=== PATIENT | male | born 1965 | race African-American/Black ===

== ENCOUNTER 2021-09-03 08:03 | Emergency (ER) | payer MEDICARE, MEDICAID ==
[~2021-09-03] VITALS: Ht 182.9 cm; Wt 86.4 kg
[~2021-09-03 08:03] MED LIST: INSU100V SQ; QUET100T PO
[2021-09-03 11:46] LABS: GLUCOSE,POINT OF CARE 184 MG/DL (70-110)
[2021-09-03 11:59] VITALS: BP 120/78
== END 2021-09-03 12:48 | disposition home or self-care (01) ==
LOC: EMS 08:13
DX: R45.851 Suicidal ideations (principal); F25.9 Schizoaffective disorder, unspecified; E11.9 Type 2 diabetes mellitus without complications; F17.210 Nicotine dependence, cigarettes, uncomplicated; Z79.899 Other long term (current) drug therapy; Z79.4 Long term (current) use of insulin
CPT/HCPCS: 82962; 99285

== ENCOUNTER 2023-05-17 09:14 | Emergency (ER) | payer MEDICAID, MEDICARE ==
[~2023-05-17] VITALS: Ht 182.9 cm; Wt 90.9 kg
[~2023-05-17 09:14] MED LIST changes: +ASPI-1444 PO; +ATOR20TA65 PO; +DIVA500T53 PO; +GABA-529 PO; -INSU100V SQ; +LISI10TA24 PO; +PRAZ1 PO; -QUET100T PO; +RIVA2.5T3 PO; +TRAZ-283 PO
[2023-05-17 09:17] VITALS: TEMP 98.5
[2023-05-17] MEDS ORDERED: INSLAN SQ ×4 (09:20→16:17)
[2023-05-17 09:52] LABS: BASOPHILS % (AUTO) 0.9 % (0.0-2.0); EOSINOPHILS % (AUTO) 6.3 % (1.0-6.0); HEMATOCRIT 41.4 % (41-53); HEMOGLOBIN 13.8 g/dL (13.5-17.5); LYMPHOCYTES # (AUTO) 1.6 K/uL (1.0-4.8); LYMPHOCYTES % (AUTO) 24.9 % (22.0-44.0); MEAN CORPUSCULAR HEMOGLOBIN 30.6 pg (26.0-34.0); MEAN CORPUSCULAR HGB CONC 33.4 G/dL (31.0-37.0); MEAN CORPUSCULAR VOLUME 92 fL (80-100); MONOCYTES # (AUTO) 0.6 K/uL (0.1-1.0); MONOCYTES % (AUTO) 8.8 % (2.0-9.0); NEUTROPHILS # (AUTO) 3.9 K/uL (1.8-7.7); NEUTROPHILS % (AUTO) 59.1 % (40.0-70.0); PLATELET COUNT (AUTO) 296 K/uL (150-450); RED BLOOD CELL COUNT(AUTO) 4.53 MIL/uL (4.50-5.90); RED CELL DISTRIBUTION WIDTH 13.8 % (11.5-14.5); WHITE BLOOD COUNT (AUTO) 6.6 K/uL (4.5-11.0)
[2023-05-17 10:02] LABS: ALANINE AMINOTRANSFERASE 21 U/L (12-78); ALBUMIN 3.4 g/dL (3.4-5.0); ALKALINE PHOSPHATASE 182 U/L (46-116); ANION GAP 6 mmol/L (8-16); ASPARTATE AMINOTRANSFERASE 14 U/L (15-37); BILIRUBIN,TOTAL 0.2 mg/dL (0.1-1.0); CALCIUM, TOTAL 8.6 mg/dL (8.8-10.5); CARBON DIOXIDE 28 mmol/L (22-29); CHLORIDE 92 mmol/L (98-107); CREATININE 1.24 mg/dL (0.60-1.30); GLOMERULAR FILTR. RATE CALC > 60 mL/min (>60); POTASSIUM 4.8 mmol/L (3.5-5.1); SODIUM SERUM 126 mmol/L (136-145); TOTAL PROTEIN, SERUM 7.7 g/dL (6.4-8.2); UREA NITROGEN, BLOOD 20 mg/dL (7-18)
[2023-05-17 10:14] LABS: GLUCOSE,RANDOM 510 mg/dL (70-110)
[2023-05-17] MEDS ORDERED: SODIUM CHLORIDE 0.9% 1,000 ML IV ONE (10:45)
[2023-05-17] MEDS ORDERED: ONDANSETRON HCL 4 MG/2 ML VIAL IVP ONE (10:45)
[2023-05-17 11:00] LABS: LIPASE 105 U/L (16-77)
[2023-05-17 11:11] LABS: TROPONIN I-HIGH SENSITIVITY 5 ng/L (<76)
[2023-05-17] MEDS ORDERED: INSULIN REGULAR, HUMAN 100 UNITS/ML IVP ONE (12:15)
[2023-05-17] MEDS ORDERED: FAMOTIDINE 20 MG/2 ML VIAL IVP ONE (15:15)
[2023-05-17 15:59] LABS: PH,URINE DRUG SCREEN 5.5 (5.0-8.0)
[2023-05-17 16:00] LABS: APPEARANCE,URINE CLEAR (CLEAR); BILIRUBIN,URINE NEGATIVE (NEGATIVE); COLOR,URINE COLORLESS (YELLOW); GLUCOSE, URINE (UA) >=1000 mg/dL (NEGATIVE); KETONES,URINE NEGATIVE (NEGATIVE); LEUKOCYTE ESTERASE ,URINE NEGATIVE (NEGATIVE); NITRATE,URINE NEGATIVE (NEGATIVE); OCCULT BLOOD,URINE NEGATIVE (NEGATIVE); PH,URINE 5.5 (5.0-8.0); PROTEIN,URINE NEGATIVE (NEGATIVE); SPECIFIC GRAVITIY, URINE 1.017 (1.003-1.030); UROBILINOGEN,URINE <=1.0 mg/dL (<=1.0)
[2023-05-17] MEDS ORDERED: POLY17PO PO (16:12)
[2023-05-17 16:14] LABS: AMPHET/METH SCREEN,URINE POSITIVE (NEGATIVE); BARBITURATE SCREEN, URINE NEGATIVE (NEGATIVE); BENZODIAZEPINES SCREEN,URINE NEGATIVE (NEGATIVE); CANNABINOID SCREEN,URINE NEGATIVE (NEGATIVE); COCAINE SCREEN,URINE NEGATIVE (NEGATIVE); METHADONE SCREEN, URINE NEGATIVE (NEGATIVE); OPIATE SCREEN,URINE NEGATIVE (NEGATIVE); PHENCYCLIDINE SCREEN,URINE NEGATIVE (NEGATIVE)
[2023-05-17 16:17] LABS: ALCOHOL, URINE DRUG SCREEN NEGATIVE (NEGATIVE)
[2023-05-17 16:21] LABS: BACTERIA,URINE None Seen /HPF (None Seen); RBC,URINE None Seen /HPF (0-2); SQUAMOUS EPITHELIAL CELL,UR Rare /LPF (None Seen); WBC,URINE None Seen /HPF (0-5)
[2023-05-17 16:54] VITALS: BP 134/75; PULSE 77; RESP 19
== END 2023-05-17 17:03 | disposition home or self-care (01) ==
LOC: EMS 09:20
DX: K59.00 Constipation, unspecified (principal); R10.84 Generalized abdominal pain; E11.65 Type 2 diabetes mellitus with hyperglycemia; F32.A Depression, unspecified; I10 Essential (primary) hypertension; F17.210 Nicotine dependence, cigarettes, uncomplicated
CPT/HCPCS: 99285; 74176; 96374; 76705; 96375; 96361; 80053; 82962; 83605; 83690; 84484; 85025; 93005; 80307; 81001; 36415; J3490; J1815; J2405; G0480

== ENCOUNTER 2023-06-09 05:38 | Inpatient (IN) | payer MEDICARE ==
[~2023-06-09] VITALS: Ht 185.4 cm; Wt 93.0 kg
[~2023-06-09 05:38] MED LIST changes: -ASPI-1444 PO; -ATOR20TA65 PO; -DIVA500T53 PO; -GABA-529 PO; +INSLAN SQ; -LISI10TA24 PO; +POLY17PO PO; -PRAZ1 PO; -RIVA2.5T3 PO; -TRAZ-283 PO
[2023-06-09] MEDS ORDERED: SODIUM CHLORIDE 0.9% 1,000 ML IV ONE (06:15)
[2023-06-09 06:20] LABS: BASOPHILS % (AUTO) 1.4 % (0.0-2.0); EOSINOPHILS % (AUTO) 3.8 % (1.0-6.0); HEMATOCRIT 38.7 % (41-53); HEMOGLOBIN 12.8 g/dL (13.5-17.5); LYMPHOCYTES # (AUTO) 1.5 K/uL (1.0-4.8); LYMPHOCYTES % (AUTO) 22.9 % (22.0-44.0); MEAN CORPUSCULAR HEMOGLOBIN 30.6 pg (26.0-34.0); MEAN CORPUSCULAR HGB CONC 33.2 G/dL (31.0-37.0); MEAN CORPUSCULAR VOLUME 92 fL (80-100); MONOCYTES # (AUTO) 0.3 K/uL (0.1-1.0); MONOCYTES % (AUTO) 4.9 % (2.0-9.0); NEUTROPHILS # (AUTO) 4.4 K/uL (1.8-7.7); PLATELET COUNT (AUTO) 250 K/uL (150-450); RED BLOOD CELL COUNT(AUTO) 4.21 MIL/uL (4.50-5.90); WHITE BLOOD COUNT (AUTO) 6.5 K/uL (4.5-11.0)
[2023-06-09 06:24] LABS: COVID AG,FIA SOURCE NASAL SWAB
[2023-06-09 06:29] LABS: ALCOHOL, BLOOD (SERUM) < 3 mg/dL (0-10)
[2023-06-09 06:36] LABS: TROPONIN I-HIGH SENSITIVITY 62 ng/L (<76)
[2023-06-09 06:41] LABS: B-TYPE NATRIURETIC PEPTIDE 7 pg/mL (0-100)
[2023-06-09 06:46] LABS: SARS-COV2 (COVID) ANTIGEN,FIA Negative (Negative)
[2023-06-09 06:53] LABS: ALANINE AMINOTRANSFERASE 30 U/L (12-78); ALBUMIN 3.3 g/dL (3.4-5.0); ALKALINE PHOSPHATASE 116 U/L (46-116); ANION GAP 12 mmol/L (8-16); ASPARTATE AMINOTRANSFERASE 18 U/L (15-37); BILIRUBIN,TOTAL 0.2 mg/dL (0.1-1.0); CALCIUM, TOTAL 8.5 mg/dL (8.8-10.5); CARBON DIOXIDE 24 mmol/L (22-29); CHLORIDE 94 mmol/L (98-107); CREATINE KINASE, TOTAL ONLY 88 U/L (39-308); CREATININE 1.31 mg/dL (0.60-1.30); GLOMERULAR FILTR. RATE CALC > 60 mL/min (>60); POTASSIUM 4.2 mmol/L (3.5-5.1); SODIUM SERUM 130 mmol/L (136-145); TOTAL PROTEIN, SERUM 7.4 g/dL (6.4-8.2); UREA NITROGEN, BLOOD 21 mg/dL (7-18)
[2023-06-09 06:56] LABS: GLUCOSE,RANDOM 553 mg/dL (70-110)
[2023-06-09 06:58] LABS: ACETONE,BLOOD NEGATIVE (NEGATIVE)
[2023-06-09] MEDS ORDERED: INSULIN REGULAR, HUMAN 100 UNITS/ML IVP ONE (07:00)
[2023-06-09] MEDS ORDERED: 0.9% SODIUM CHLORIDE 10 ML SYRINGE IVP PRN (07:15)
[2023-06-09] MEDS ORDERED: ONDANSETRON HCL 4 MG/2 ML VIAL IVP PRN ×2 (07:15→16:00)
[2023-06-09] MEDS ORDERED: ACETAMINOPHEN 325 MG TABLET PO PRN ×2 (07:15→16:00)
[2023-06-09 08:25] LABS: TROPONIN I-HIGH SENSITIVITY 76 ng/L (<76)
[2023-06-09 09:24] VITALS: BP 113/56; PULSE 89; RESP 20; TEMP 97.6
[2023-06-09 10:11] LABS: GLUCOMETER DEV NAME(LOC) ER.6; GLUCOSE,POINT OF CARE 173 MG/DL (70-110)
[2023-06-09] MEDS ORDERED: GLUCAGON,HUMAN RECOMBINANT 1 MG VIAL IM PRN (14:45)
[2023-06-09] MEDS ORDERED: DEXTROSE 50%-WATER 25 GM/50 ML SYG IVP PRN (15:00)
[2023-06-09 15:01] LABS: GLUCOMETER DEV NAME(LOC) 6S.2; GLUCOSE,POINT OF CARE 196 MG/DL (70-110)
[2023-06-09] MEDS ORDERED: ALBUTEROL SULFATE 2.5 MG/0.5 ML NEB SOLUTION NEB PRN (16:00)
[2023-06-09] MEDS ORDERED: MORPHINE SULFATE 2 MG/ML SYRINGE IVP PRN (16:00)
[2023-06-09] MEDS ORDERED: MAGNESIUM HYDROXIDE SUSPENSION 30 ML UDCUP PO PRN (16:00)
[2023-06-09] MEDS ORDERED: IPRATROPIUM BROMIDE 0.5 MG/2.5 ML NEB SOLUTION NEB PRN (16:00)
[2023-06-09] MEDS ORDERED: ZOLPIDEM TARTRATE 5 MG TABLET PO PRN (16:00)
[2023-06-09] MEDS ORDERED: BISACODYL 10 MG RECTAL RECTAL SUPPOSITORY PR PRN (16:00)
[2023-06-09] MEDS ORDERED: HYDROCODONE/ACETAMINOPHEN 5-325 MG TABLET PO PRN (16:00)
[2023-06-09] MEDS: HEPARIN SODIUM,PORCINE 5,000 UNITS/ML VIAL SQ SCH ×2 (16:19→23:56)
[2023-06-09 16:36] VITALS: BP 101/61; PULSE 81; RESP 19; TEMP 97.5
[2023-06-09] MEDS: INSULIN LISPRO 100 UNITS/ML SQ PRN (17:26)
[2023-06-09 20:41] VITALS: BP 111/69; PULSE 78; RESP 18; TEMP 98.2
[2023-06-09] MEDS ORDERED: INSULIN GLARGINE,HUM.REC.ANLOG 100 UNITS/ML SQ SCH (21:00)
[2023-06-10 05:15] VITALS: BP 114/69; PULSE 69; RESP 18; TEMP 98
[2023-06-10] MEDS: INSULIN LISPRO 100 UNITS/ML SQ PRN ×3 (06:35→20:23)
[2023-06-10 07:37] VITALS: BP 122/70; PULSE 72; RESP 18; TEMP 98.2
[2023-06-10 07:56] LABS: GLUCOMETER DEV NAME(LOC) 6S.2; GLUCOSE,POINT OF CARE 127 MG/DL (70-110)
[2023-06-10 07:56] LABS: GLUCOMETER DEV NAME(LOC) 6S.2; GLUCOSE,POINT OF CARE 172 MG/DL (70-110)
[2023-06-10 07:56] LABS: GLUCOMETER DEV NAME(LOC) 6S.2; GLUCOSE,POINT OF CARE 60 MG/DL (70-110)
[2023-06-10 07:56] LABS: GLUCOMETER DEV NAME(LOC) 6S.2; GLUCOSE,POINT OF CARE 80 MG/DL (70-110)
[2023-06-10 08:16] LABS: BASOPHILS % (AUTO) 0.6 % (0.0-2.0); EOSINOPHILS % (AUTO) 3.8 % (1.0-6.0); LYMPHOCYTES # (AUTO) 1.9 K/uL (1.0-4.8); LYMPHOCYTES % (AUTO) 27.3 % (22.0-44.0); MEAN CORPUSCULAR HEMOGLOBIN 30.6 pg (26.0-34.0); MEAN CORPUSCULAR HGB CONC 33.3 G/dL (31.0-37.0); MEAN CORPUSCULAR VOLUME 92 fL (80-100); MONOCYTES # (AUTO) 0.4 K/uL (0.1-1.0); MONOCYTES % (AUTO) 5.8 % (2.0-9.0); NEUTROPHILS # (AUTO) 4.4 K/uL (1.8-7.7); NEUTROPHILS % (AUTO) 62.5 % (40.0-70.0); PLATELET COUNT (AUTO) 222 K/uL (150-450)
[2023-06-10 08:36] LABS: ALANINE AMINOTRANSFERASE 22 U/L (12-78); ALBUMIN 2.7 g/dL (3.4-5.0); ALKALINE PHOSPHATASE 68 U/L (46-116); ANION GAP 8 mmol/L (8-16); ASPARTATE AMINOTRANSFERASE 11 U/L (15-37); BILIRUBIN,TOTAL 0.2 mg/dL (0.1-1.0); CALCIUM, TOTAL 8.8 mg/dL (8.8-10.5); CARBON DIOXIDE 26 mmol/L (22-29); CHLORIDE 101 mmol/L (98-107); GLOMERULAR FILTR. RATE CALC > 60 mL/min (>60); GLUCOSE,RANDOM 110 mg/dL (70-110); POTASSIUM 4.1 mmol/L (3.5-5.1); SODIUM SERUM 135 mmol/L (136-145); TOTAL PROTEIN, SERUM 6.3 g/dL (6.4-8.2); UREA NITROGEN, BLOOD 12 mg/dL (7-18)
[2023-06-10] MEDS: HEPARIN SODIUM,PORCINE 5,000 UNITS/ML VIAL SQ SCH ×2 (08:38→16:09)
[2023-06-10] MEDS: PANTOPRAZOLE SODIUM 40 MG DR TABLET PO SCH (08:39)
[2023-06-10 11:21] LABS: GLUCOMETER DEV NAME(LOC) 6N.1B; GLUCOSE,POINT OF CARE 80 MG/DL (70-110)
[2023-06-10] MEDS ORDERED: NEED-462 MC (13:43)
[2023-06-10] MEDS ORDERED: INSU3INS3 SQ (13:43)
[2023-06-10 15:18] VITALS: BP 126/72; PULSE 74; RESP 18; TEMP 98.4
[2023-06-10 20:06] LABS: GLUCOMETER DEV NAME(LOC) 6S.2; GLUCOSE,POINT OF CARE 221 MG/DL (70-110)
[2023-06-10] MEDS: INSULIN GLARGINE,HUM.REC.ANLOG 100 UNITS/ML SQ SCH (20:22)
[2023-06-10 20:35] VITALS: BP 110/59; PULSE 74; RESP 18; TEMP 98.7
[2023-06-11] MEDS: HEPARIN SODIUM,PORCINE 5,000 UNITS/ML VIAL SQ SCH ×4 (00:08→23:23)
[2023-06-11 02:21] LABS: GLUCOMETER DEV NAME(LOC) 6N.2B; GLUCOSE,POINT OF CARE 192 MG/DL (70-110)
[2023-06-11 05:44] VITALS: BP 125/77; PULSE 64; RESP 20; TEMP 98.3
[2023-06-11 07:35] LABS: GLUCOMETER DEV NAME(LOC) 6N.1B; GLUCOSE,POINT OF CARE 76 MG/DL (70-110)
[2023-06-11] MEDS: PANTOPRAZOLE SODIUM 40 MG DR TABLET PO SCH (08:14)
[2023-06-11 08:42] VITALS: BP 111/69; PULSE 71; RESP 20; TEMP 98.3
[2023-06-11 15:22] VITALS: BP 115/69; PULSE 68; RESP 18; TEMP 98.3
[2023-06-11 17:31] LABS: GLUCOMETER DEV NAME(LOC) 6S.2; GLUCOSE,POINT OF CARE 119 MG/DL (70-110)
[2023-06-11 17:32] LABS: GLUCOMETER DEV NAME(LOC) 6S.2; GLUCOSE,POINT OF CARE 168 MG/DL (70-110)
[2023-06-11] MEDS: INSULIN LISPRO 100 UNITS/ML SQ PRN ×2 (17:49→20:20)
[2023-06-11 19:51] VITALS: BP 118/83; PULSE 72; RESP 18; TEMP 98.3
[2023-06-11] MEDS: INSULIN GLARGINE,HUM.REC.ANLOG 100 UNITS/ML SQ SCH (20:20)
[2023-06-12 05:04] VITALS: BP 128/72; PULSE 77; RESP 19; TEMP 98.3
[2023-06-12 05:16] LABS: GLUCOMETER DEV NAME(LOC) 6N.1B; GLUCOSE,POINT OF CARE 146 MG/DL (70-110)
[2023-06-12 07:36] LABS: GLUCOMETER DEV NAME(LOC) 6N.2B; GLUCOSE,POINT OF CARE 105 MG/DL (70-110)
[2023-06-12 08:03] VITALS: BP 126/74; PULSE 78; RESP 18; TEMP 98.5
[2023-06-12] MEDS: HEPARIN SODIUM,PORCINE 5,000 UNITS/ML VIAL SQ SCH ×2 (08:30→16:13)
[2023-06-12] MEDS: PANTOPRAZOLE SODIUM 40 MG DR TABLET PO SCH (08:31)
[2023-06-12] MEDS: INSULIN LISPRO 100 UNITS/ML SQ PRN ×3 (11:35→20:26)
[2023-06-12 11:46] LABS: GLUCOMETER DEV NAME(LOC) 6S.2; GLUCOSE,POINT OF CARE 166 MG/DL (70-110)
[2023-06-12 17:47] LABS: GLUCOMETER DEV NAME(LOC) 6N.1B; GLUCOSE,POINT OF CARE 267 MG/DL (70-110)
[2023-06-12 19:30] VITALS: BP 109/70; PULSE 68; RESP 20; TEMP 98.2
[2023-06-12] MEDS: INSULIN GLARGINE,HUM.REC.ANLOG 100 UNITS/ML SQ SCH (20:26)
[2023-06-13] MEDS: HEPARIN SODIUM,PORCINE 5,000 UNITS/ML VIAL SQ SCH ×4 (00:13→23:29)
[2023-06-13 03:40] VITALS: BP 108/81; PULSE 70; RESP 20; TEMP 98.7
[2023-06-13 05:51] LABS: GLUCOMETER DEV NAME(LOC) 6N.1B; GLUCOSE,POINT OF CARE 199 MG/DL (70-110)
[2023-06-13 08:14] VITALS: BP 114/84; PULSE 74; RESP 20; TEMP 98.4
[2023-06-13] MEDS: PANTOPRAZOLE SODIUM 40 MG DR TABLET PO SCH (09:01)
[2023-06-13 09:26] LABS: GLUCOMETER DEV NAME(LOC) 6S.2; GLUCOSE,POINT OF CARE 96 MG/DL (70-110)
[2023-06-13 15:28] VITALS: BP 116/82; PULSE 76; RESP 20; TEMP 98.4
[2023-06-13 19:14] VITALS: BP 109/64; PULSE 74; RESP 20; TEMP 98.8
[2023-06-13] MEDS: INSULIN GLARGINE,HUM.REC.ANLOG 100 UNITS/ML SQ SCH (20:20)
[2023-06-13] MEDS: INSULIN LISPRO 100 UNITS/ML SQ PRN (20:22)
[2023-06-14 03:59] VITALS: BP 118/86; PULSE 89; RESP 20; TEMP 97.5
[2023-06-14] MEDS: INSULIN LISPRO 100 UNITS/ML SQ PRN (05:42)
[2023-06-14 06:18] LABS: GLUCOMETER DEV NAME(LOC) 6N.2B; GLUCOSE,POINT OF CARE 272 MG/DL (70-110)
[2023-06-14] MEDS: HEPARIN SODIUM,PORCINE 5,000 UNITS/ML VIAL SQ SCH (08:19)
[2023-06-14] MEDS: PANTOPRAZOLE SODIUM 40 MG DR TABLET PO SCH (08:19)
[2023-06-14 08:31] VITALS: BP 107/71; PULSE 82; RESP 20; TEMP 98.4
[2023-06-14 18:45] LABS: GLUCOMETER DEV NAME(LOC) 6N.2B; GLUCOSE,POINT OF CARE 336 MG/DL (70-110)
[2023-06-15 05:26] LABS: GLUCOMETER DEV NAME(LOC) 6S.2; GLUCOSE,POINT OF CARE 322 MG/DL (70-110)
== END 2023-06-14 14:00 | disposition home or self-care (01) | DRG 638 ==
LOC: EMS 05:42 → 6S 08:52
PROVIDERS: ADMIT Hospitalist; ATTEND Hospitalist
DX: E11.65 Type 2 diabetes mellitus with hyperglycemia (principal); F33.2 Major depressive disorder, recurrent severe without psychotic features; R45.851 Suicidal ideations; Z59.00 Homelessness unspecified; Z20.822 Contact with and (suspected) exposure to COVID-19; I10 Essential (primary) hypertension; F17.210 Nicotine dependence, cigarettes, uncomplicated; F15.90 Other stimulant use, unspecified, uncomplicated; F12.90 Cannabis use, unspecified, uncomplicated; Z86.718 Personal history of other venous thrombosis and embolism; Z91.148 Patient's other noncompliance with medication regimen for other reason
CPT/HCPCS: 80053; 82009; 82550; 82962; 83605; 83735; 83880; 83930; 84484; 85025; 93005; 99285; G0480; J1644; J1815; J7030

== ENCOUNTER 2023-11-16 16:36 | Emergency (ER) | payer MEDICARE, OTHER ==
[~2023-11-16] VITALS: Ht 182.9 cm; Wt 100.0 kg
[~2023-11-16 16:36] MED LIST changes: -INSLAN SQ; +INSU3INS3 SQ; +NEED-462 MC; -POLY17PO PO
[2023-11-16 16:41] VITALS: BP 127/71; PULSE 86; RESP 18; TEMP 98.2
[2023-11-16 17:06] LABS: BASOPHILS % (AUTO) 0.9 % (0.0-2.0); EOSINOPHILS % (AUTO) 5.6 % (1.0-6.0); HEMATOCRIT 44.5 % (41-53); HEMOGLOBIN 14.6 g/dL (13.5-17.5); LYMPHOCYTES # (AUTO) 2.2 K/uL (1.0-4.8); LYMPHOCYTES % (AUTO) 35.5 % (22.0-44.0); MEAN CORPUSCULAR HEMOGLOBIN 29.7 pg (26.0-34.0); MEAN CORPUSCULAR HGB CONC 32.8 G/dL (31.0-37.0); MEAN CORPUSCULAR VOLUME 91 fL (80-100); MONOCYTES # (AUTO) 0.7 K/uL (0.1-1.0); MONOCYTES % (AUTO) 11.1 % (2.0-9.0); NEUTROPHILS % (AUTO) 46.9 % (40.0-70.0); PLATELET COUNT (AUTO) 254 K/uL (150-450); RED BLOOD CELL COUNT(AUTO) 4.92 MIL/uL (4.50-5.90); RED CELL DISTRIBUTION WIDTH 15.7 % (11.5-14.5); WHITE BLOOD COUNT (AUTO) 6.3 K/uL (4.5-11.0)
[2023-11-16 17:16] LABS: ANION GAP 8 mmol/L (8-16); CALCIUM, TOTAL 9.2 mg/dL (8.8-10.5); CARBON DIOXIDE 25 mmol/L (22-29); CHLORIDE 104 mmol/L (98-107); CREATININE 1.07 mg/dL (0.60-1.30); GLOMERULAR FILTR. RATE CALC > 60 mL/min (>60); GLUCOSE,RANDOM 96 mg/dL (70-110); POTASSIUM 4.6 mmol/L (3.5-5.1); SODIUM SERUM 137 mmol/L (136-145); UREA NITROGEN, BLOOD 16 mg/dL (7-18)
[2023-11-16 17:22] LABS: ALANINE AMINOTRANSFERASE 17 U/L (12-78); ALBUMIN 3.2 g/dL (3.4-5.0); ALKALINE PHOSPHATASE 55 U/L (46-116); ASPARTATE AMINOTRANSFERASE 13 U/L (15-37); BILIRUBIN,TOTAL 0.2 mg/dL (0.1-1.0); TOTAL PROTEIN, SERUM 7.3 g/dL (6.4-8.2)
[2023-11-16 17:24] LABS: ALCOHOL, BLOOD (SERUM) < 3 mg/dL (0-10)
[2023-11-16 18:15] LABS: AMPHET/METH SCREEN,URINE NEGATIVE (NEGATIVE); BARBITURATE SCREEN, URINE NEGATIVE (NEGATIVE); BENZODIAZEPINES SCREEN,URINE NEGATIVE (NEGATIVE); CANNABINOID SCREEN,URINE NEGATIVE (NEGATIVE); COCAINE SCREEN,URINE NEGATIVE (NEGATIVE); METHADONE SCREEN, URINE NEGATIVE (NEGATIVE); OPIATE SCREEN,URINE NEGATIVE (NEGATIVE); PHENCYCLIDINE SCREEN,URINE NEGATIVE (NEGATIVE)
[2023-11-16 18:16] LABS: ALCOHOL, URINE DRUG SCREEN NEGATIVE (NEGATIVE)
[2023-11-16] MEDS: QUEtiapine FUMARATE 100 MG TABLET PO ONE (18:45)
== END 2023-11-16 22:35 | disposition home or self-care (01) ==
LOC: EMS 16:38
DX: F25.9 Schizoaffective disorder, unspecified (principal); F32.A Depression, unspecified; E11.9 Type 2 diabetes mellitus without complications; I10 Essential (primary) hypertension; F17.210 Nicotine dependence, cigarettes, uncomplicated; Z98.890 Other specified postprocedural states
CPT/HCPCS: 99283; 80053; 85025; 36415; 80307; G0480

== ENCOUNTER 2024-03-16 00:22 | Emergency (ER) | payer MEDICARE, OTHER ==
[~2024-03-16] VITALS: Ht 182.9 cm; Wt 100.0 kg
[2024-03-16 00:29] VITALS: TEMP 98.3
[2024-03-16] MEDS ORDERED: INSU100V37 SQ (00:52)
[2024-03-16 02:16] LABS: ANION GAP 5 mmol/L (8-16); CALCIUM, TOTAL 8.5 mg/dL (8.8-10.5); CARBON DIOXIDE 28 mmol/L (22-29); CHLORIDE 105 mmol/L (98-107); CREATININE 1.22 mg/dL (0.60-1.30); GLOMERULAR FILTR. RATE CALC > 60 mL/min (>60); GLUCOSE,RANDOM 146 mg/dL (70-110); POTASSIUM 4.3 mmol/L (3.5-5.1); SODIUM SERUM 138 mmol/L (136-145); UREA NITROGEN, BLOOD 17 mg/dL (7-18)
[2024-03-16 02:25] LABS: TROPONIN I-HIGH SENSITIVITY 5 ng/L (<76)
[2024-03-16 02:31] LABS: BASOPHILS % (AUTO) 0.5 % (0.0-2.0); EOSINOPHILS % (AUTO) 4.7 % (1.0-6.0); HEMATOCRIT 44.1 % (41-53); HEMOGLOBIN 14.4 g/dL (13.5-17.5); LYMPHOCYTES # (AUTO) 1.8 K/uL (1.0-4.8); LYMPHOCYTES % (AUTO) 27.4 % (22.0-44.0); MEAN CORPUSCULAR HEMOGLOBIN 30.1 pg (26.0-34.0); MEAN CORPUSCULAR HGB CONC 32.6 G/dL (31.0-37.0); MEAN CORPUSCULAR VOLUME 92 fL (80-100); MONOCYTES # (AUTO) 0.4 K/uL (0.1-1.0); MONOCYTES % (AUTO) 6.1 % (2.0-9.0); NEUTROPHILS % (AUTO) 61.3 % (40.0-70.0); PLATELET COUNT (AUTO) 255 K/uL (150-450); RED BLOOD CELL COUNT(AUTO) 4.79 MIL/uL (4.50-5.90); RED CELL DISTRIBUTION WIDTH 14.3 % (11.5-14.5); WHITE BLOOD COUNT (AUTO) 6.6 K/uL (4.5-11.0)
[2024-03-16 04:02] VITALS: BP 118/69; PULSE 74; RESP 16
== END 2024-03-16 04:51 | disposition home or self-care (01) ==
LOC: EMS 00:29
DX: R00.2 Palpitations (principal); F15.10 Other stimulant abuse, uncomplicated; R42 Dizziness and giddiness; E11.9 Type 2 diabetes mellitus without complications; I10 Essential (primary) hypertension; F17.210 Nicotine dependence, cigarettes, uncomplicated; F12.90 Cannabis use, unspecified, uncomplicated
CPT/HCPCS: 71045; 80048; 82962; 84484; 85025; 93005; 99284; 36415-L1; 36415-TC

== ENCOUNTER 2024-04-22 18:21 | Emergency (ER) | payer MEDICARE, OTHER ==
[~2024-04-22] VITALS: Ht 188 cm; Wt 100.0 kg
[~2024-04-22 18:21] MED LIST changes: +INSU100V37 SQ
[2024-04-22 18:56] VITALS: TEMP 98.7
[2024-04-22 19:11] LABS: GLUCOMETER DEV NAME(LOC) ER.7; GLUCOSE,POINT OF CARE 152 MG/DL (70-110)
[2024-04-22 21:03] LABS: ALCOHOL, BLOOD (SERUM) < 3 mg/dL (0-10)
[2024-04-22 22:16] LABS: ANION GAP 13 mmol/L (8-16); CARBON DIOXIDE 28 mmol/L (22-29); CHLORIDE 104 mmol/L (98-107); CREATININE 1.22 mg/dL (0.60-1.30); GLOMERULAR FILTR. RATE CALC > 60 mL/min (>60); GLUCOSE,RANDOM 89 mg/dL (70-110); SODIUM SERUM 145 mmol/L (136-145); UREA NITROGEN, BLOOD 14 mg/dL (7-18)
[2024-04-22] MEDS: ACETAMINOPHEN 500 MG TABLET PO ONE (22:19)
[2024-04-22 22:46] LABS: BASOPHILS % (AUTO) 0.3 % (0.0-2.0); EOSINOPHILS % (AUTO) 2.1 % (1.0-6.0); HEMATOCRIT 45.5 % (41-53); HEMOGLOBIN 14.7 g/dL (13.5-17.5); LYMPHOCYTES # (AUTO) 2.1 K/uL (1.0-4.8); LYMPHOCYTES % (AUTO) 28.2 % (22.0-44.0); MEAN CORPUSCULAR HEMOGLOBIN 29.7 pg (26.0-34.0); MEAN CORPUSCULAR HGB CONC 32.3 G/dL (31.0-37.0); MEAN CORPUSCULAR VOLUME 92 fL (80-100); MONOCYTES # (AUTO) 0.8 K/uL (0.1-1.0); MONOCYTES % (AUTO) 10.5 % (2.0-9.0); NEUTROPHILS # (AUTO) 4.4 K/uL (1.8-7.7); NEUTROPHILS % (AUTO) 58.9 % (40.0-70.0); PLATELET COUNT (AUTO) 305 K/uL (150-450); RED BLOOD CELL COUNT(AUTO) 4.94 MIL/uL (4.50-5.90); RED CELL DISTRIBUTION WIDTH 14.6 % (11.5-14.5); WHITE BLOOD COUNT (AUTO) 7.4 K/uL (4.5-11.0)
[2024-04-22 22:51] LABS: ALANINE AMINOTRANSFERASE 36 U/L (12-78); ALBUMIN 3.8 g/dL (3.4-5.0); ALKALINE PHOSPHATASE 80 U/L (46-116); ASPARTATE AMINOTRANSFERASE 20 U/L (15-37); BILIRUBIN,TOTAL 0.4 mg/dL (0.1-1.0); CREATINE KINASE, TOTAL ONLY 275 U/L (39-308); TOTAL PROTEIN, SERUM 7.5 g/dL (6.4-8.2)
[2024-04-22 22:57] VITALS: BP 141/79; PULSE 104; RESP 22; O2SAT 95
[2024-04-22 23:04] LABS: B-TYPE NATRIURETIC PEPTIDE 171 pg/mL (0-100)
[2024-04-22 23:05] LABS: AMMONIA 23 umol/L (11-32); TROPONIN I-HIGH SENSITIVITY 5 ng/L (<76)
[2024-04-22 23:31] LABS: APPEARANCE,URINE CLEAR (CLEAR); BILIRUBIN,URINE NEGATIVE (NEGATIVE); COLOR,URINE LIGHT YELLOW (YELLOW); GLUCOSE, URINE (UA) NEGATIVE (NEGATIVE); KETONES,URINE NEGATIVE (NEGATIVE); LEUKOCYTE ESTERASE ,URINE NEGATIVE (NEGATIVE); NITRATE,URINE NEGATIVE (NEGATIVE); OCCULT BLOOD,URINE NEGATIVE (NEGATIVE); PROTEIN,URINE 30-70 mg/dL (NEGATIVE); SPECIFIC GRAVITIY, URINE 1.023 (1.003-1.030); UROBILINOGEN,URINE <=1.0 mg/dL (<=1.0)
[2024-04-22 23:57] LABS: ALCOHOL, URINE DRUG SCREEN NEGATIVE (NEGATIVE); AMPHET/METH SCREEN,URINE POSITIVE (NEGATIVE); BARBITURATE SCREEN, URINE NEGATIVE (NEGATIVE); BENZODIAZEPINES SCREEN,URINE NEGATIVE (NEGATIVE); CANNABINOID SCREEN,URINE NEGATIVE (NEGATIVE); COCAINE SCREEN,URINE NEGATIVE (NEGATIVE); METHADONE SCREEN, URINE NEGATIVE (NEGATIVE); OPIATE SCREEN,URINE NEGATIVE (NEGATIVE); PHENCYCLIDINE SCREEN,URINE NEGATIVE (NEGATIVE)
[2024-04-23] MEDS ORDERED: KETOROLAC TROMETHAMINE 30 MG/ML VIAL IM ONE (00:30)
[2024-04-23] MEDS ORDERED: IBUP-1492 PO (00:33)
[2024-04-23] MEDS ORDERED: METH-812 PO (00:33)
[2024-04-23] MEDS: LORazepam 1 MG TABLET PO ONE (00:37)
[2024-04-23] MEDS: KETOROLAC TROMETHAMINE 60 MG/2 ML VIAL IM ONE (01:23)
== END 2024-04-23 01:24 | disposition home or self-care (01) ==
LOC: EMS 18:21
DX: M62.838 Other muscle spasm (principal); R51.9 Headache, unspecified; E11.9 Type 2 diabetes mellitus without complications; I10 Essential (primary) hypertension; F17.210 Nicotine dependence, cigarettes, uncomplicated; F12.90 Cannabis use, unspecified, uncomplicated; F15.10 Other stimulant abuse, uncomplicated; Z79.899 Other long term (current) drug therapy
CPT/HCPCS: 99285; 70450; 71045; 80053; 82140; 82550; 82962; 83880; 84484; 85025; 36415; 72125; 93005; 80307; 81003; 96372; G0480; J1885